=== PATIENT | female | born 1950 | race Caucasian/White ===

== ENCOUNTER → 2023-12-01 10:45 | Outpatient (REF) | payer MEDICARE, OTHER, SELFPAY | LOC: RAD 10:45 | PROVIDERS: ATTENDING PHYSICIAN Internal Medicine | DX: I73.9 Peripheral vascular disease, unspecified (principal) | CPT/HCPCS: 93925 ==

== ENCOUNTER → 2023-12-11 10:58 | Outpatient (REF) | payer MEDICARE, OTHER, SELFPAY | LOC: HWRAD 10:58 | PROVIDERS: ATTENDING PHYSICIAN Nurse Practitioner Family; FAMILY PHYSICIAN Internal Medicine | DX: R22.1 Localized swelling, mass and lump, neck (principal) | CPT/HCPCS: 76536 ==

== ENCOUNTER → 2023-12-18 10:40 | Outpatient (REF) | payer MEDICARE, OTHER, SELFPAY | LOC: RAD 10:40 | PROVIDERS: ATTENDING PHYSICIAN Surgery Vascular Surgery; FAMILY PHYSICIAN Internal Medicine | DX: I73.9 Peripheral vascular disease, unspecified (principal) | CPT/HCPCS: 93922 ==

== ENCOUNTER → 2024-07-19 06:23 | Day surgery (SDC) | payer MEDICARE, OTHER, SELFPAY | LOC: GI 06:23 | PROVIDERS: ATTENDING PHYSICIAN Internal Medicine Gastroenterology; FAMILY PHYSICIAN Internal Medicine | DX: K55.20 Angiodysplasia of colon without hemorrhage (principal); K57.30 Diverticulosis of large intestine without perforation or abscess without bleeding; R19.5 Other fecal abnormalities; K64.0 First degree hemorrhoids | CPT/HCPCS: 45378 ==

== ENCOUNTER 2024-10-22 03:38 | Inpatient (IN) | payer MEDICARE, OTHER, SELFPAY ==
[2024-10-21 16:38] VITALS: BMI 30.1
[2024-10-21 17:03] VITALS: BP 103/67
[2024-10-21 17:41] LABS: ALT (SGPT) 33 U/L (0-35); AST (SGOT) 38 U/L (14-36); Albumin 4.2 g/dl (3.5-5.0); Alkaline Phosphatase 80 U/L (38-126); Blood Urea Nitrogen 24 mg/dl (7-17); Calcium 9.8 mg/dl (8.4-10.2); Carbon Dioxide 23 mmol/L (22-30); Chloride 102 mmol/L (98-107); Glucose 130 mg/dl (70-99); Lipase 168 U/L (23-300); Potassium 3.5 mmol/L (3.5-5.1); Sodium 134 mmol/L (135-145); Total Bilirubin 0.9 mg/dl (0.2-1.3); Total Protein 6.3 g/dl (6.3-8.2); eGFR > 60.00
[2024-10-21 17:47] LABS: Hematocrit 46.1 % (37.0-47.0); Hemoglobin 15.4 g/dL (12.0-16.0); Mean Corp Hgb Conc. 33.4 g/dL (33.0-37.0); Mean Corpuscular Hgb 29.3 pg (27.0-31.0); Mean Corpuscular Volume 87.8 fL (81.0-99.0); Mean Platelet Volume 10.3 fL (7.4-10.4); Platelet Count 289 10^3/uL (130-400); Red Blood Cell Count 5.25 10^6/uL (4.20-5.40); Red Cell Dist. Width 13.2 % (11.5-14.5); White Blood Cell Count 20.2 10^3/uL (4.8-10.8)
[2024-10-21 18:02] LABS: Absolute Neutrophils -Man Diff 18.1 10^3/uL (1.4-6.5); Band Neutrophils 1 % (0-3); Lymphocytes 7 % (20-51); Monocytes 3 % (2-9); Normal RBC Morphology Yes; Platelets Checked Yes; Segmented Neutrophils 89 % (42-75); Total Cells Counted 100
[2024-10-21 21:05] VITALS: BP 107/70
--- NOTE | 2024-10-21 21:37 | ED.GENMED ---
History of Present Illness
General
Chief Complaint: Abdominal Symptoms
Source: patient and family
Time Seen by Provider: 10/21/24 21:20
History of Present Illness
History of Present Illness:
This patient is a 74-year-old female presents emergency department with complaints of a slight headache that she noted last night. She went to bed and slept throughout the night and woke up this morning feeling 'good'. However, shortly after
breakfast she noted pain across her mid to lower abdomen that persists associated with nausea and several episodes of nonbloody vomiting as well as nonbloody diarrhea. She took Pepto and Imodium without relief of symptoms. She describes the pain
as constant but waxes and wanes in intensity and seems to be better when she leans over. She denies fever, chills, chest pain, shortness of breath, back pain, or other complaints. She denies sick contacts.
Past History
Past History
ED Past Medical History: Other (Hypertrophic cardiomyopathy, hypertension, asthma)
ED Past Surgical History: Orthopedic and Other (Panniculectomy, hemorrhoidectomy, rhinoplasty)
Social History
Tobacco: Non-smoker
Alcohol: None
Drug: None
Personal:
Living: with family
Employment: Employed
Family History
Family History: CAD; Negative Early CAD or Sudden
Phy Exam
Physical Exam
Physical Exam:
GENERAL: Alert , in no apparent distress
EYE: pupils equal and reactive
NECK: Supple, no significant adenopathy.
ENT: o/p clr, mm dry
CARDIAC: Regular rate and rhythm, systolic murmur noted.
LUNGS: Clear breath sounds bilaterally, no acute respiratory distress, no wheezes/rales/rhonchi
ABDOMEN: Soft, diffuse mid to lower tenderness, no r/g, no cvat
NEUROLOGICAL: Alert and oriented, no focal neuro deficits
SKIN: Warm and dry, skin intact.
MUSCULOSKELETAL: No edema, well perfused.
PSYCH: Normal and appropriate interaction.
Course
Orders/Labs/Results
Orders:
Orders
10/21/24 17:13
Complete Blood Count/With Diff Urgent
Comprehensive Metabolic Panel Urgent
Lipase Urgent
Manual Differential Urgent
10/21/24 21:37
CT Abd/Pel (IV only)-DH only Urgent
Comment:
Reason For Exam: abd pain (mid), n/v/d, wbc 20K
0.9% Sodium Chloride 1000 ml [Nss] 1,000 ml IV BOLUS
10/21/24 21:38
Ketorolac [Toradol] 15 mg IV NOW STA
10/21/24 22:12
Lorazepam [Ativan] 0.5 mg IV NOW STA
Morphine Sulfate 4 mg IV NOW STA
10/22/24 01:33
0.9% Sodium Chloride 500 ml [Nss] 500 ml IV BOLUS
LevoFLOXacin 500 MG/100 ML [Levaquin] 500 mg in 100 ml IV NOW
MetroNIDAZOLE 500 MG/100 ML [Flagyl 500 mg] 100 ml IV NOW
10/22/24 02:51
Admit/Transfer Patient As Directed
Co-Sign Provider:
Level of Care: Inpatient admission
Assign to:: Telemetry
Physician / Group: Arlene
Diagnosis: Colitis
Reason for Telemetry: Arrhythmia
Date to Stop Telemetry: 10/25/24
Time to Stop Telemetry: 11:00
Reason for Hospitalization: Colitis
Expected length of stay greater than two midnights?: Yes
ELOS- Estimated Length of Stay in days: 3
I certify the patient meets the requirements for IP care: Yes
10/22/24 02:52
Code Status As Directed
Resuscitation Status: Full Code
PRN Pain Medication Management As Directed
May give lesser potent ordered pain med per pt: Yes
preference::
Protocol:: Medication orders for pain may be administered in a
manner that supports deferring to patient preference
when the pt is:
- Requesting an ordered lesser potent pain medication.
Least to most potent pain medications are defined
as: acetaminophen < NSAID < tramadol < opioids
(morphine, oxycodone, hydromorphone).
- Requesting a lesser dose of the same medication IF
ORDERED.
- Requesting a less intrusive route of administration
if both routes are prescribed by the provider (PO <
IV).
10/22/24 03:19
Lactate Level [Lactic Acid] Urgent
10/22/24 03:48
Acetaminophen [Tylenol] 650 mg PO Q4HPRN PRN
HYDROmorphone [Dilaudid] 0.5 mg IV Q4HPRN PRN
Lactated Ringers [Lr] 1,000 ml IV 125 mls/hr
Ondansetron Injectable [Zofran] 4 mg IV Q6HPRN PRN
10/22/24 03:48
Activity As Directed
Activity Level: Ambulate
With Assistance
I/O [Intake/ Output] As Directed
Frequency: Per unit guidelines
Orthostatic Vital Signs As Directed
Orthostatic VS Frequency: BID
Pneumatic Compression Sleeves As Directed
Type: Knee high
Precautions As Directed
Type of Precautions: Contact
Vital Signs As Directed
Frequency: Per unit guidelines
Oxygen Therapy [O2 Therapy] [RESP] Routine
Titrate/Wean O2 to maintain O2 sat greater than (%): 94
DX Deep Vein Thrombosis Video Routine
10/22/24 05:31
Basic Metabolic Panel IN AM
Complete Blood Count/No Diff IN AM
10/22/24 Breakfast
Clear Liquid
At Your Request: Full Participation
Piperacillin/Tazo 3.375 Gram [Zosyn] 3.375 gram in 50 ml IV Q6H
10/25/24 11:00
DC Protocol for Telemetry ONCE
Abnormal Lab Results
10/21/24
17:13
WBC 20.2 H 10^3/uL
(4.8-10.8)
Abs Neuts (Manual) 18.1 H 10^3/uL
(1.4-6.5)
Segmented Neutrophils 89 H %
(42-75)
Lymphocytes (Manual) 7 L %
(20-51)
Sodium 134 L mmol/L
(135-145)
BUN 24 H mg/dl
(7-17)
Glucose 130 H mg/dl
(70-99)
AST 38 H U/L
(14-36)
10/21/24 17:13
10/21/24 17:13
Vital Signs
Initial and Last Documented VS:
Initial Vital Signs
Temp Pulse Resp BP Pulse Ox
97.3 F 111 18 103/67 96
10/21/24 17:03 10/21/24 17:03 10/21/24 17:03 10/21/24 17:03 10/21/24 17:03
Last Documented Vital Signs
Temp Pulse Resp BP Pulse Ox
98.1 F 76 20 150/88 97
10/26/24 11:35 10/26/24 11:35 10/26/24 11:35 10/26/24 11:35 10/26/24 11:35
*Critical Care Note
Total Time (30-74mins, 75-104mins- exclusive of procedures): Not Applicable
Update Note
Update Note:
Patient presents to the Emergency Department with abdominal pain nausea vomiting diarrhea
Number and Complexity of Problems Addressed at the Encounter
� Chronic conditions affecting care:
� Acute Exacerbation and/or Progression of Chronic Illness:
� Differential Diagnosis includes: But not limited to bowel obstruction, gastroenteritis, appendicitis, diverticulitis, etc. etc.
Amount and/or Complexity of Data to be Reviewed and Analyzed
� I performed an independent evaluation of and my interpretation is:
EKG:
CT: Read by vision, wall thickening of the colon most notable in the descending to sigmoid suggesting colitis small free fluid in the pelvis mesenteric vessels are patent etiologies include infectious/inflammatory with watershed
ischemia not excluded of hypovolemic which can be clinically correlated, hiatal hernia present without obstruction or acute finding normal gallbladder
Xrays:
Laboratory Studies: Markedly elevated white blood cell count with left shift, prerenal azotemia
Other:
� Review of other/old records reveals:
� Clinical information was obtained by an independent historian:
� Prescriptions/Medications Considered but not given:
� Further testing considered but not performed:
Risk of Complications and/or Morbidity or Mortality of Patient Management
� Social determinants of health affecting care:
� Discussion with other providers (PCP, Hospitalists, Consultants, etc):
� Escalation of care including admission/observation vs risk of discharge considered: 1013pm Pt has taken morphine in past without s/e. Requesting ativan for CT scan.
132 am Pt feels much better, pain now 3/10. No new sxs. sl hypotension noted, suspect dehdration related, will give more ivf. given labs/ct etc will tx presumptively for infectious colitis with abx. admission, close monitoring. D/w dr Acuna via
text.
ED Attending Note
-
Portions of this chart may have been created with voice recognition software.� Occasional wrong word or��sound alike� substitutions may have occurred due to the inherent limitations of voice recognition software.
Discharge Plan
Departure
Patient Disposition: Admit
Date of Disposition: 10/22/24
Time of Disposition: 01:35
Admit to: Telemetry
Admit to doctor: arlene
Presentation/result/management discussed w/ accepting MD/DO: Hospitalist
Discharge Problem:
Colitis
Interventions
Interventions:
*Risk Screen - Suicide Last Done: 10/22/24 04:03
*General Assessment Last Done: 10/21/24 21:36
ED- Fall Risk Assessment Last Done: 10/21/24 21:37
*ED COVID-19 Vaccine History Last Done: 10/21/24 21:36
*Nursing Disposition Last Done: 10/22/24 07:30
DE-Uhgkuh-Sscijczyng Assessment Last Done: 10/21/24 21:37
Discharge Date and Time
Discharge Date/Time: 10/22/24 07:30
[2024-10-21] MEDS: NSS 1000 IV (21:46)
[2024-10-21] MEDS: TORADOL 15 MG IV (21:46)
[2024-10-21 22:00] VITALS: BP 100/71
[2024-10-21] MEDS: MORPHINE SULFATE 4 MG IV (22:21)
[2024-10-21] MEDS: ATIVAN 0.5 MG IV (22:23)
[2024-10-21 23:00] VITALS: BP 95/57
[2024-10-22] VITALS (38 sets, daily range): BP systolic 81–116; BP diastolic 46–75
[2024-10-22] MEDS: NSS 500 IV ×2 (02:09→06:24)
[2024-10-22] MEDS: FLAGYL 500 MG 100 IV (02:10)
[2024-10-22] MEDS: LEVAQUIN 100 IV (02:10)
--- NOTE | 2024-10-22 02:55 | HPS.HSE ---
Family Physician
-
Family Physician: Malia Mary
Chief Complaint
-
Abd Pain, Diarrhea
History of Present Illness
Patient is a 74y F with PMH significant for HOCM, hypertension and asthma who presents to ED complaining of abdominal pain. Patient states that she was feeling well until this AM just after breakfast (two hard boiled eggs and some toast) when
she developed diffuse abdominal pain. Patient states that her symptoms persisted throughout the day. Pain was worse with any movement. She had 3-4 episodes of non-bloody emesis. She states that she has had non-bloody diarrhea 'all day'. She
reports 10 small episodes since arrival here in the ED. Patient denies any prior history of similar symptoms.
She recently (Thursday) visited her aunt at a facility where they had a recent outbreak of Norovirus.
She has no other specific / known sick contacts.
Medical History
Past Medical History
Past Medical History: Reports Other
Additional Past Medical History:
Hypertrophic Cardiomyopathy
Hypertension
Asthma
Past Surgical History: Reports Other
Additional Past Surgical History:
T&A
Hemorrhoidectomy
Septoplasty
Abdominoplasty
D&C
Laminectomy
Right TKA
Social History
Tobacco: Non-smoker
Alcohol: None
Drug: None
Family History
Family History: Not pertinent
Allergies / Home Medications
Allergies reflects when Allergies were last updated in [facility].
Home Medications with original date entered in [facility]
Allergy/Medication List:
Allergies
Allergy/AdvReac Type Severity Reaction Status Date / Time
oxycodone Allergy Rash Verified 08/21/21 06:36
Home Medications
atorvastatin 10 mg tablet 10 mg PO TUTHSA 05/07/18
Alteril 2 tab PO HS 07/24/21
albuterol sulfate 90 mcg/actuation aerosol inhaler 2 puff inhalation PRN PRN SOB 07/24/21
baclofen 5 mg tablet 5 mg PO Q8H 07/24/21
fluticasone furoate 200 mcg-vilanterol 25 mcg/dose inhalation powder (Breo Ellipta) 1 ea IH Daily 07/24/21
lisinopril 5 mg tablet 5 mg PO DAILY 07/24/21
metoprolol tartrate 50 mg tablet 50 mg PO BID 07/24/21
pregabalin 50 mg capsule 50 mg PO BID 07/24/21
aspirin 81 mg tablet,delayed release (Aspir-Low) 81 mg PO DAILY ##0 08/22/21
diazepam 2 mg tablet 2 mg PO HS #5 tabs 08/22/21
docusate sodium 100 mg capsule 100 mg PO BID 08/22/21
hydrocodone 10 mg-acetaminophen 325 mg tablet 1 ea PO Q6HPRN PRN MODERATE-SEVERE PAIN ##0 08/22/21
lorazepam 0.5 mg tablet 0.5 mg PO BID PRN anxiety ##0 08/22/21
sennosides 8.6 mg tablet (senna) 2 tab PO BID 08/22/21
vitamins A,C,V-vslv-cpcfhs 4,296 mcg-226 mg-90 mg capsule (PreserVision AREDS) 1 cap PO BID ##0 08/22/21
cephalexin 500 mg capsule 500 mg PO Q6H 5 days #20 caps 08/23/21
Review of Systems
-
History Source: Patient
A 12 point ROS was completed and negative except as noted: Yes
Constitutional: Reports Fatigue; Denies Fever or Chills
Respiratory: Denies Cough or Trouble Breathing
Cardiac: Denies Chest Pain or Palpitations
Abdomen/GI: Reports Abdominal Pain, Nausea, Vomiting and Diarrhea; Denies Bloody Stools or Black Stools
: Denies Dysuria or Frequency
Musculoskeletal: Denies Joint Pain or Edema
Neurological: Denies Dizzy or Headache
Psych: Denies Depression or Anxiety
Physical Exam
Vital Signs
Vital Signs
Temp Pulse Resp BP Pulse Ox
97.3 F 103 25 110/68 94
10/21/24 17:03 10/22/24 02:30 10/22/24 02:30 10/22/24 02:00 10/22/24 02:30
Physical Exam
General: Other (74y F in no acute distress.)
HEENT: Other (Dry MM.)
Respiratory: Clear; No Wheezes, Rales or Rhonchi
Cardiac: S1/S2, Regular Rhythm and Murmur (III/ LAST)
GI: Soft, Non Distended, Normal Bowel Sounds and Other (Diffusely tender wth voluntary guarding. No rebound.)
Musculoskeletal: No Clubbing, No Cyanosis and No Edema
Neuro: AO x 3
Laboratory Results
-
10/21/24 17:13
10/21/24 17:13
Laboratory Results
Total Bilirubin 0.9 mg/dl (0.2-1.3) 10/21/24 17:13
AST 38 U/L (14-36) H 10/21/24 17:13
ALT 33 U/L (0-35) 10/21/24 17:13
Alkaline Phosphatase 80 U/L (38-126) 10/21/24 17:13
Lipase 168 U/L (23-300) 10/21/24 17:13
Impression/Plan
-
A/P: Patient is a 74y F with PMH significant for asthma, HTN and HOCM who presents to ED complaining of abdominal pain and N/V/D.
Colitis
Sepsis secondary to the above
- Admit for further evaluation and treatment.
- Patient presents with leukocytosis, tachycardia, tachypnea and symptoms / CT findings c/w colitis.
- Check stool studies for culture, CDiff, etc.
- IV abx with Zosyn for now.
- IVF support.
- Check lactate level and trend if elevated.
- Follow for clinical improvement.
Hypertrophic Cardiomyopathy
- Followed at [facility]. Noted to be 'severe' on recent evaluation.
- ? ischemic colitis on basis of outflow obstruction / poor perfusion.
- Additional symptoms seem to support infectious etiology.
- Check and follow lactate level.
- IVF support / avoid hypotension / hypoperfusion.
Mild Asthma without Exacerbation
- Stable. Nebs PRN.
DVT Prophylaxis: SCDs
Code Status: Full
[2024-10-22 03:42] LABS: Lactic Acid 1.6 mmol/L (0.7-2.0)
[2024-10-22] MEDS: LR 1000 IV ×6 (05:12→19:54)
[2024-10-22 05:50] LABS: Hematocrit 38.3 % (37.0-47.0); Hemoglobin 12.9 g/dL (12.0-16.0); Mean Corp Hgb Conc. 33.7 g/dL (33.0-37.0); Mean Corpuscular Hgb 29.7 pg (27.0-31.0); Mean Platelet Volume 10.3 fL (7.4-10.4); Platelet Count 206 10^3/uL (130-400); Red Blood Cell Count 4.35 10^6/uL (4.20-5.40); Red Cell Dist. Width 13.3 % (11.5-14.5); White Blood Cell Count 17.5 10^3/uL (4.8-10.8)
--- NOTE | 2024-10-22 05:52 | PTCARENOTE ---
Pt with BP systolic in the 80's, asymptomatic without complaints; d/w covering DATA MANAGEMENT CONSULTANT, 500cc bolus ordered.
[2024-10-22 06:06] LABS: Blood Urea Nitrogen 30 mg/dl (7-17); Calcium 8.4 mg/dl (8.4-10.2); Carbon Dioxide 21 mmol/L (22-30); Chloride 104 mmol/L (98-107); Estimated Creatinine Clearance 52 ml/min; Glucose 121 mg/dl (70-99); Potassium 3.8 mmol/L (3.5-5.1); Sodium 132 mmol/L (135-145); eGFR 53.06
[2024-10-22] MEDS: ZOSYN 50 IV ×4 (06:19→23:47)
--- NOTE | 2024-10-22 06:37 | W.PN.UPDATE ---
Update Note
Progress Note Update
Patient hypotensive, 80/40's, HR 110's. Attempted 2x 500 ml fluid bolus and IV fluids at 125. Remained hypotensive. Tranferred to IMU level of care, started Levophed.
--- NOTE | 2024-10-22 06:40 | PTCARENOTE ---
Pt's BP 90/48 with a MAP of 58 after 500cc bolus, remains asymptomatic. INSOLE CHANNELER updated on pt status, orders receive to upgrade pt to IMU level of care. Report called to ANY POLANCO.
--- NOTE | 2024-10-22 08:48 | W.PN.HOSP.TC ---
Today's Communication/Plan
-
see PN
Assessment / Plan
Assessment / Plan
74yo F with PMHX of cholecytectomy, asthma, HLD, HTN, neuropathy, HOCM came with c/o abdominal pain, cramping and waterry nopn-bloody diarrhea for 1 day. Had contact with possible norovirus 5 days prior, CT showed colitis
A/P:
#Colitis with hypotension, concern for septic shock
lactate WNL
check stool studies
Zosyn
IVF
#ZELDA
2/2 dehydration
IVF
# left renal mass measuring 2.9 cm, suspicious for neoplasm
renal MRI as outpatient
folow with urology
#HOCM
#Essential HTN
#Neuropathy
#HLD
hold antihypertensives
#Hepatic lesions
cysts and some too small to characterize - MRI as outpatient
DVT ppx hep
Full code
I have spent at least 59min reviewing chart, test results, communication with consultants and direct patientcare
Anticipated Discharge: > 48 hours
Subjective/Interval History
-
Date of Service: October 22, 2024
Objective Data
-
Labs:
Laboratory Results
10/22/24
05:31
WBC 17.5 H
Hgb 12.9
Hct 38.3
Plt Count 206 D
Sodium 132 L
Potassium 3.8
Chloride 104
Carbon Dioxide 21 L
BUN 30 H
Creatinine 1.1 H
Glucose 121 H
Calcium 8.4
Vital Signs:
Vital Signs
Temp Pulse Resp BP Pulse Ox
97.3 F 107 26 84/50 92
10/21/24 17:03 10/22/24 07:00 10/22/24 07:00 10/22/24 07:00 10/22/24 07:00
Review of Systems
-
History Source: Patient
All other systems: Reviewed and negative
Abdomen/GI: Reports Abdominal Pain and Diarrhea
Physical Exam
-
General: No Apparent Distress
HEENT: Normocephalic
Respiratory: Clear to Auscultation
Cardiac: Regular Rhythm
GI: Soft, Nondistended and Tender
Genito-urinary: No Costovertebral Tender
Musculoskeletal: No Clubbing, No Cyanosis and No Edema
Neuro: Awake, Alert, Oriented and AO x 3
Psych: Calm
--- NOTE | 2024-10-22 10:56 | PTCARENOTE ---
received from ER on a stretcher, handoff tele monitoring completed. patient on enhanced precautions due to diarrhea and stool specimen pending collection. patient is hypotensive, c/o of feeling weak. assisted to the bathroom and back to bed. IVF
bolus admin with positive effect. BP BP 116/53 MAP 72, MD aware. second IV line placed and documented. LR is infusing @125 ml/hr. no levo needed at this time. patient does not express need to have a bowel movement as of right now. tolerating CLD.
family updated over the phone
[2024-10-22 12:23] LABS: COVID-19 Antigen Negative (Negative)
[2024-10-22] MEDS: TYLENOL 650 MG PO (16:11)
--- NOTE | 2024-10-22 16:29 | CM ---
Patient seen at bedside.
IA completed
Lives with in a ranch, 3 steps to enter
PLOF; independent
DME: henry Alvarado
PCP: Malia Mary
Pharmacy: [facility]
PLAN: Home, currently no needs anticipated
[2024-10-22] MEDS: FIRVANQ 125 MG PO ×2 (17:38→23:47)
[2024-10-22] MEDS: HEPARIN 5000 UNITS SC (19:54)
[2024-10-22] MEDS: MELATONIN 5 MG PO (21:22)
[2024-10-23] VITALS (21 sets, daily range): BP systolic 93–146; BP diastolic 54–106; PULSE 90–91; O2SAT 96; BMI 29.7
[2024-10-23 05:11] LABS: ALT (SGPT) 30 U/L (0-35); AST (SGOT) 32 U/L (14-36); Albumin 2.6 g/dl (3.5-5.0); Alkaline Phosphatase 71 U/L (38-126); Blood Urea Nitrogen 30 mg/dl (7-17); Calcium 7.8 mg/dl (8.4-10.2); Carbon Dioxide 17 mmol/L (22-30); Chloride 102 mmol/L (98-107); Estimated Creatinine Clearance 52 ml/min; Glucose 83 mg/dl (70-99); Potassium 3.5 mmol/L (3.5-5.1); Sodium 130 mmol/L (135-145); Total Bilirubin 1.1 mg/dl (0.2-1.3); Total Protein 4.6 g/dl (6.3-8.2); eGFR 53.06
[2024-10-23 05:19] LABS: Hematocrit 33.7 % (37.0-47.0); Hemoglobin 11.1 g/dL (12.0-16.0); Mean Corp Hgb Conc. 32.9 g/dL (33.0-37.0); Mean Corpuscular Hgb 29.2 pg (27.0-31.0); Mean Corpuscular Volume 88.7 fL (81.0-99.0); Mean Platelet Volume 11.1 fL (7.4-10.4); Platelet Count 182 10^3/uL (130-400); Red Cell Dist. Width 13.6 % (11.5-14.5); White Blood Cell Count 16.7 10^3/uL (4.8-10.8)
[2024-10-23] MEDS: FIRVANQ 125 MG PO ×4 (05:38→22:51)
[2024-10-23] MEDS: ZOSYN 50 IV (05:38)
--- NOTE | 2024-10-23 06:17 | PTCARENOTE ---
remains with loose watery diarrhea- bp wnl never required Levophed- afebrile- ambulates w/out difficulty
[2024-10-23 08:52] LABS: Absolute Neutrophils -Man Diff 13.5 10^3/uL (1.4-6.5); Band Neutrophils 14 % (0-3); Segmented Neutrophils 67 % (42-75)
[2024-10-23 08:58] LABS: Normal RBC Morphology Yes; Platelets Checked Yes; Total Cells Counted 100
[2024-10-23 08:59] LABS: Lymphocytes 10 % (20-51); Monocytes 9 % (2-9)
[2024-10-23] MEDS: HEPARIN 5000 UNITS SC ×2 (09:14→19:49)
[2024-10-23] MEDS: LR IV (09:18)
[2024-10-23] MEDS: FLAGYL 500 MG 100 IV ×2 (10:33→18:07)
[2024-10-23 10:51] LABS: Urine Albumin Trace (Neg - Trace); Urine Bilirubin Negative (Negative); Urine Character Clear (Clear); Urine Color Yellow; Urine Glucose Negative (Negative); Urine Ketone Negative (Negative); Urine Leukocyte 1+ (Negative); Urine Nitrite Negative (Negative); Urine Occult Blood 1+ (Negative); Urine Urobilinogen Negative (Neg - 1+)
[2024-10-23 11:30] LABS: Urine Bacteria Few (Negative)
--- NOTE | 2024-10-23 11:42 | W.PN.HOSP.TC ---
Addendum entered and electronically signed by Caio Judd MD 10/23/24 18:42:
third spacing with protein loosing enteropathy and low albumin - imodium started since no wbc in stool, albumin infusion once, check protein in AM
Original Note:
Today's Communication/Plan
-
With bandemia - repeat septic check Bcx, XR, UA
Switch to Ceftriaxone/Flagyl
Assessment / Plan
Assessment / Plan
74yo F with PMHX of cholecystectomy, asthma, HLD, HTN, neuropathy, HOCM came with c/o abdominal pain, cramping and waterry nopn-bloody diarrhea for 1 day. Had contact with possible norovirus 5 days prior, CT showed colitis. C.diff came positive for
clostridium difficile, but neg for toxin, started on empiric treatment due to pronounced symptoms. Since meeting criteria for severe infection with bandemia and hypotension on admission - add Flagyl. Rocephin for possible UTI.
A/P:
#Colitis with hypotension, concern for septic shock
#Cannot r/o UTI
lactate WNL
No WBC in stool,
Ceftriaxone/Flagyl
Clostridium difficile present, but toxin not detected - start oral Vanco since bandemia and prognosed symptomatology
Bcx pending
Ucx pending
#ZELDA
2/2 dehydration
IVF
# left renal mass measuring 2.9 cm, suspicious for neoplasm
renal MRI as outpatient
follow with urology
#HOCM
#Essential HTN
#Neuropathy
#HLD
hold antihypertensives
#Hepatic lesions
cysts and some too small to characterize liver lesions - MRI as outpatient
DVT ppx hep
Full code
I have spent at least 57min reviewing chart, test results, communication with consultants and direct patient care
Anticipated Discharge: > 48 hours
Subjective/Interval History
-
Date of Service: October 23, 2024
Objective Data
-
Labs:
Laboratory Results
10/23/24
04:29
WBC 16.7 H
Hgb 11.1 L
Hct 33.7 L
Plt Count 182
Sodium 130 L
Potassium 3.5
Chloride 102
Carbon Dioxide 17 L
BUN 30 H
Creatinine 1.1 H
Glucose 83
Calcium 7.8 L
Total Bilirubin 1.1
AST 32
ALT 30
Alkaline Phosphatase 71
Vital Signs:
Vital Signs
Temp Pulse Resp BP Pulse Ox
98.3 F 86 16 118/54 94
10/23/24 08:05 10/23/24 06:00 10/23/24 06:00 10/23/24 06:00 10/23/24 06:00
I&O
10/22/24 10/23/24 10/24/24
06:59 06:59 06:59
Intake Total 1490 / 1490
Balance 1490 / 1490
Review of Systems
-
History Source: Patient
All other systems: Reviewed and negative
Abdomen/GI: Reports Diarrhea
Physical Exam
-
General: No Apparent Distress
HEENT: Normocephalic
Respiratory: Clear to Auscultation
Cardiac: Regular Rhythm
GI: Soft, Nondistended and Tender
Musculoskeletal: No Clubbing, No Cyanosis and No Edema
Neuro: Awake, Alert, Oriented and AO x 3
Psych: Calm
[2024-10-23] MEDS: ROCEPHIN 1000 MG IV (12:45)
[2024-10-23] MEDS: STERILE WATER FOR INJECTION 10 ML IV (12:45)
--- NOTE | 2024-10-23 15:06 | PTCARENOTE ---
AAOx3, makes needs known, several BMs recorded during this shift. BP stable. BC and urine collected, pending. Xray completed. patient is on IV ABT, no adverse reactions noted. CLD tolerating, oob to a chair with PT for meals. assisted with care.
family at bedside
--- NOTE | 2024-10-23 18:15 | W.PN.UPDATE ---
Update Note
Progress Note Update
cross coverage update:
Notified by nurse patient complaint acid reflux, unable to recall the name of the medication she takes for this at home. Started Protonix 40 mg BID for now.
[2024-10-23] MEDS: PROTONIX 40 MG PO (18:33)
[2024-10-23] MEDS: ALBUMIN 5% 250 IV ×2 (19:48→21:08)
[2024-10-23] MEDS: MELATONIN 5 MG PO (21:08)
--- NOTE | 2024-10-23 21:43 | PTCARENOTE ---
Received pt at change of shift. Pt able to ambulate to bathroom with no assist. Albumin ordered and administered. BP remains stable at this time. Current reading is 146/77 HR 97. Afebrile. Still having diarrhea but does not want any imodium as
ordered PRN. Pt resting in bed with call carpenter in reach.
[2024-10-24] VITALS (12 sets, daily range): BP systolic 129–166; BP diastolic 70–98; PULSE 88–99; BMI 29.2
[2024-10-24] MEDS: ATIVAN 0.5 MG PO ×2 (00:06→21:10)
[2024-10-24] MEDS: FLAGYL 500 MG 100 IV ×2 (02:29→09:06)
[2024-10-24] MEDS: FIRVANQ 125 MG PO ×3 (05:29→17:13)
[2024-10-24 05:52] LABS: % Basophils 0.3 % (0-2); % Eosinophils 1.8 % (0-6); % Immature Granulocytes 0.6 % (0-0.5); % Lymphocytes 11.4 % (20.5-51.1); % Monocytes 8.9 % (1.7-9.3); Absolute Eosinophils 0.2 10^3/uL (0-0.7); Absolute Immature Granulocytes 0.1 10^3/uL (0-0.05); Absolute Lymphocytes 1.2 10^3/uL (1.2-3.4); Absolute Monocytes 0.9 10^3/uL (0.1-0.6); Hematocrit 31.5 % (37.0-47.0); Hemoglobin 10.7 g/dL (12.0-16.0); Mean Corpuscular Volume 88.2 fL (81.0-99.0); Mean Platelet Volume 10.8 fL (7.4-10.4); Nucleated Red Blood Cells % 0 %; Platelet Count 161 10^3/uL (130-400); Red Blood Cell Count 3.57 10^6/uL (4.20-5.40); Red Cell Dist. Width 13.3 % (11.5-14.5); White Blood Cell Count 10.4 10^3/uL (4.8-10.8)
[2024-10-24 06:25] LABS: ALT (SGPT) 25 U/L (0-35); AST (SGOT) 25 U/L (14-36); Albumin 2.9 g/dl (3.5-5.0); Alkaline Phosphatase 62 U/L (38-126); Blood Urea Nitrogen 13 mg/dl (7-17); Calcium 8.1 mg/dl (8.4-10.2); Carbon Dioxide 20 mmol/L (22-30); Chloride 108 mmol/L (98-107); Estimated Creatinine Clearance 94 ml/min; Glucose 85 mg/dl (70-99); Potassium 3.2 mmol/L (3.5-5.1); Sodium 137 mmol/L (135-145); Total Bilirubin 0.5 mg/dl (0.2-1.3); Total Protein 4.9 g/dl (6.3-8.2); eGFR > 60.00
--- NOTE | 2024-10-24 08:52 | PTCARENOTE ---
Patient removed from enhanced precautions per Jackie the Instructional Media Services Technician. Per Jackie, patient does not carry the infectious c-diff antigen. Care ongoing.
[2024-10-24] MEDS: PROTONIX 40 MG PO (09:06)
[2024-10-24] MEDS: HEPARIN 5000 UNITS SC ×2 (09:06→21:07)
--- NOTE | 2024-10-24 10:37 | PTCARENOTE ---
Spoke to Jackie the [employer] and Dr. Nielson. Patient's c-diff is going to be treated so patient needs to be placed back on enhanced precautions. Patient continues with diarrhea. Care ongoing.
[2024-10-24] MEDS: STERILE WATER FOR INJECTION 10 ML IV (12:14)
[2024-10-24] MEDS: ROCEPHIN 1000 MG IV (12:15)
--- NOTE | 2024-10-24 14:51 | PTCARENOTE ---
Patient is AOx3. Patient on RA. VSS. NSR with first degree on monitor. Patient continues with diarrhea. Patient tolerating full liquid diet. Independent when ambulating. Enhanced precautions. Call carpenter within reach, bed in lowest position, and bed
wheels locked.
[2024-10-24] MEDS: KCL 40 MEQ PO (16:45)
--- NOTE | 2024-10-24 16:51 | W.PN.HOSP.TC ---
Today's Communication/Plan
-
Continue oral vancomycin, no Imodium
Switch PPI to famotidine
Continue ceftriaxone
Follow-up cultures
Advance to full liquid diet
Assessment / Plan
Assessment / Plan
74yo F with PMHX of cholecystectomy, asthma, HLD, HTN, neuropathy, HOCM came with c/o abdominal pain, cramping and waterry nopn-bloody diarrhea for 1 day. Had contact with possible norovirus 5 days prior, CT showed colitis. C.diff came positive for
clostridium difficile, but neg for toxin, started on empiric treatment due to pronounced symptoms. Since meeting criteria for severe infection with bandemia and hypotension on admission - add Flagyl. Rocephin for possible UTI.
A/P:
#Colitis with hypotension
#Sepsis
#C Diff
-Ceftriaxone can be continued
-Stool cultures neg
-Will treat with Oral Vanc for CDiff- NO imodium in this case
-Adv to FLD
-F/u cultures
-Ucx neg
�Switch to famotidine, DC PPI in setting of C. difficile treatment
#ZELDA
#Anion gap metabolic acidosis�secondary ZELDA
2/2 dehydration
IVF
-Improving/resolved
#Hypokalemia
� Monitor and replete
- Follow-up magnesium levels
#Hyponatremia
- Suspect secondary to volume depletion
� Resolved with resuscitation
� Continue to monitor
# left renal mass measuring 2.9 cm, suspicious for neoplasm
renal MRI as outpatient
follow with urology
#HOCM
#Essential HTN
#Neuropathy
#HLD
hold antihypertensives
#Hepatic lesions
cysts and some too small to characterize liver lesions - MRI as outpatient
DVT ppx hep
Full code
I have spent at least 53 min reviewing chart, test results, communication with consultants and direct patient care
Anticipated Discharge: 24 - 48 hours
Subjective/Interval History
-
Date of Service: October 24, 2024
Still with loose stools
Objective Data
-
Labs:
Laboratory Results
10/24/24
05:27
WBC 10.4
Hgb 10.7 L
Hct 31.5 L
Plt Count 161
Sodium 137
Potassium 3.2 L
Chloride 108 H
Carbon Dioxide 20 L
BUN 13
Creatinine 0.6
Glucose 85
Calcium 8.1 L
Total Bilirubin 0.5
AST 25
ALT 25
Alkaline Phosphatase 62
Vital Signs:
Vital Signs
Temp Pulse Resp BP Pulse Ox
98.8 F 85 19 159/94 98
10/24/24 15:05 10/24/24 12:24 10/24/24 12:24 10/24/24 12:24 10/24/24 12:00
I&O
10/23/24 10/24/24 10/25/24
06:59 06:59 06:59
Intake Total 1490 / 1490 480 / 480
Balance 1490 / 1490 480 / 480
Review of Systems
-
History Source: Patient
All other systems: Not reviewed unless documented
Physical Exam
-
General: No Apparent Distress
HEENT: Normocephalic
Respiratory: Clear to Auscultation
Cardiac: Regular Rhythm
GI: Soft, Nondistended and Tender
Musculoskeletal: No Clubbing, No Cyanosis and No Edema
Neuro: Awake, Alert, Oriented and AO x 3
Psych: Calm
Data Reviewed
-
Diagnostic Radiology: Report Reviewed by me
CT Scan: Report Reviewed by me
Labs: Labs Reviewed by me
--- NOTE | 2024-10-24 17:02 | PTCARENOTE ---
Patient transferred via stretcher to . Verbal report given to Mayra AGARWAL. Patient belongings sent with patient.
[2024-10-24 17:45] LABS: Magnesium 2.1 mg/dl (1.6-2.3)
--- NOTE | 2024-10-24 17:59 | PTCARENOTE ---
Received patient as a transfer from IMU. Pt AOx3, VSS, no c/o pain. Pt oriented to room, plan of care explained, meds given. Call carpenter within reach.
[2024-10-24] MEDS: MELATONIN 5 MG PO (21:07)
[2024-10-24] MEDS: PEPCID 40 MG PO (21:07)
[2024-10-25] MEDS: FIRVANQ 125 MG PO ×5 (00:54→23:31)
[2024-10-25 03:55] VITALS: BP 152/86
[2024-10-25] MEDS: HEPARIN 5000 UNITS SC (08:05)
[2024-10-25 08:29] VITALS: BP 175/101
[2024-10-25 10:42] LABS: Hematocrit 35.3 % (37.0-47.0); Hemoglobin 11.7 g/dL (12.0-16.0); Mean Corp Hgb Conc. 33.1 g/dL (33.0-37.0); Mean Corpuscular Hgb 28.8 pg (27.0-31.0); Mean Corpuscular Volume 86.9 fL (81.0-99.0); Mean Platelet Volume 10.6 fL (7.4-10.4); Platelet Count 217 10^3/uL (130-400); Red Blood Cell Count 4.06 10^6/uL (4.20-5.40); Red Cell Dist. Width 13.2 % (11.5-14.5); White Blood Cell Count 6.6 10^3/uL (4.8-10.8)
[2024-10-25 10:58] LABS: ALT (SGPT) 25 U/L (0-35); AST (SGOT) 27 U/L (14-36); Albumin 3.4 g/dl (3.5-5.0); Alkaline Phosphatase 68 U/L (38-126); Blood Urea Nitrogen 5 mg/dl (7-17); Calcium 8.4 mg/dl (8.4-10.2); Carbon Dioxide 24 mmol/L (22-30); Chloride 105 mmol/L (98-107); Estimated Creatinine Clearance 93 ml/min; Glucose 93 mg/dl (70-99); Magnesium 1.9 mg/dl (1.6-2.3); Potassium 3.5 mmol/L (3.5-5.1); Sodium 137 mmol/L (135-145); Total Bilirubin 0.5 mg/dl (0.2-1.3); Total Protein 5.5 g/dl (6.3-8.2); eGFR > 60.00
[2024-10-25] MEDS: CALAN EXTENDED RELEASE 120 MG PO (11:15)
[2024-10-25] MEDS: TYLENOL 650 MG PO (11:16)
[2024-10-25] MEDS: STERILE WATER FOR INJECTION 10 ML IV (11:17)
[2024-10-25] MEDS: ROCEPHIN 1000 MG IV (11:17)
[2024-10-25] MEDS: ZOFRAN 4 MG IV ×2 (11:18→22:28)
--- NOTE | 2024-10-25 13:19 | CM ---
Chart reviewed and director case met with patient this am and and patient is anxious to return to home.
Plan; Home when stable, no needs.
--- NOTE | 2024-10-25 14:11 | W.PN.HOSP.TC ---
Today's Communication/Plan
-
Continue full liquid diet
Antiemetics
Continue antibiotics
Assessment / Plan
Assessment / Plan
74yo F with PMHX of cholecystectomy, asthma, HLD, HTN, neuropathy, HOCM came with c/o abdominal pain, cramping and waterry nopn-bloody diarrhea for 1 day. Had contact with possible norovirus 5 days prior, CT showed colitis. C.diff came positive for
clostridium difficile, but neg for toxin, started on empiric treatment due to pronounced symptoms. Since meeting criteria for severe infection with bandemia and hypotension on admission - add Flagyl. Rocephin for possible UTI.
A/P:
#Colitis with hypotension
#Sepsis
#C Diff
-Ceftriaxone can be continued
-Stool cultures neg
-Will treat with Oral Vanc for CDiff- NO imodium in this case
-Adv to FLD�continue as patient nauseous this morning
-F/u cultures�no growth today
-Ucx neg
�Switch to famotidine, DC PPI in setting of C. difficile treatment
#ZELDA
#Anion gap metabolic acidosis�secondary ZELDA
2/2 dehydration
IVF
-Improving/resolved
#Hypokalemia
� Monitor and replete
- Follow-up magnesium levels
#Hyponatremia
- Suspect secondary to volume depletion
� Resolved with resuscitation
� Continue to monitor
# left renal mass measuring 2.9 cm, suspicious for neoplasm
renal MRI as outpatient
follow with urology
#HOCM
#Essential HTN
#Neuropathy
#HLD
Resume metoprolol succinate, verapamil
Hold lisinopril
#Hepatic lesions
cysts and some too small to characterize liver lesions - MRI as outpatient
DVT ppx hep
Full code
Anticipated Discharge: 24 - 48 hours
Subjective/Interval History
-
Date of Service: October 25, 2024
Nauseous today, could not eat breakfast
Objective Data
-
Labs:
Laboratory Results
10/25/24
09:57
WBC 6.6
Hgb 11.7 L
Hct 35.3 L
Plt Count 217 D
Sodium 137
Potassium 3.5
Chloride 105
Carbon Dioxide 24
BUN 5 L
Creatinine 0.6
Glucose 93
Calcium 8.4
Total Bilirubin 0.5
AST 27
ALT 25
Alkaline Phosphatase 68
Vital Signs:
Vital Signs
Temp Pulse Resp BP Pulse Ox
98.3 F 85 16 165/95 95
10/25/24 08:29 10/25/24 11:15 10/25/24 08:29 10/25/24 11:15 10/25/24 08:29
I&O
10/24/24 10/25/24 10/26/24
06:59 06:59 06:59
Intake Total 1919
Balance 1919
Review of Systems
-
History Source: Patient
All other systems: Not reviewed unless documented
Physical Exam
-
General: No Apparent Distress
HEENT: Normocephalic
Respiratory: Clear to Auscultation
Cardiac: Regular Rhythm
GI: Soft, Nondistended and Tender
Musculoskeletal: No Clubbing, No Cyanosis and No Edema
Neuro: Awake, Alert, Oriented and AO x 3
Psych: Calm
Data Reviewed
-
Diagnostic Radiology: Report Reviewed by me
CT Scan: Report Reviewed by me
Labs: Labs Reviewed by me
[2024-10-25 15:00] VITALS: BP 143/64
[2024-10-25 19:30] VITALS: BP 169/98
[2024-10-25 20:55] VITALS: BP 169/98
[2024-10-25] MEDS: TOPROL XL 25 MG PO (21:12)
[2024-10-25] MEDS: MELATONIN 5 MG PO (21:12)
[2024-10-25] MEDS: PEPCID 40 MG PO (21:12)
[2024-10-25] MEDS: HEPARIN SC (21:13)
[2024-10-25] MEDS: ATIVAN 0.5 MG PO (22:28)
[2024-10-25 23:27] VITALS: BP 140/90
[2024-10-26 03:35] VITALS: BP 153/104
[2024-10-26] MEDS: FIRVANQ 125 MG PO ×2 (05:18→11:27)
[2024-10-26 06:04] LABS: Hematocrit 32.5 % (37.0-47.0); Hemoglobin 11.1 g/dL (12.0-16.0); Mean Corp Hgb Conc. 34.2 g/dL (33.0-37.0); Mean Corpuscular Hgb 29.7 pg (27.0-31.0); Mean Corpuscular Volume 86.9 fL (81.0-99.0); Mean Platelet Volume 10.5 fL (7.4-10.4); Platelet Count 208 10^3/uL (130-400); Red Blood Cell Count 3.74 10^6/uL (4.20-5.40); Red Cell Dist. Width 13.1 % (11.5-14.5); White Blood Cell Count 6.8 10^3/uL (4.8-10.8)
[2024-10-26 06:24] LABS: ALT (SGPT) 28 U/L (0-35); AST (SGOT) 34 U/L (14-36); Alkaline Phosphatase 79 U/L (38-126); Blood Urea Nitrogen 3 mg/dl (7-17); Calcium 8.3 mg/dl (8.4-10.2); Carbon Dioxide 29 mmol/L (22-30); Chloride 104 mmol/L (98-107); Estimated Creatinine Clearance 93 ml/min; Glucose 91 mg/dl (70-99); Sodium 138 mmol/L (135-145); Total Bilirubin 0.3 mg/dl (0.2-1.3); Total Protein 4.9 g/dl (6.3-8.2); eGFR > 60.00
[2024-10-26] MEDS: HEPARIN SC (07:45)
[2024-10-26] MEDS: CALAN EXTENDED RELEASE 120 MG PO (07:45)
--- NOTE | 2024-10-26 09:05 | PTCARENOTE ---
RN took sherly blood pressure.
[2024-10-26] MEDS: KCL ELIXIR 40 MEQ PO ×2 (11:27→12:32)
[2024-10-26] MEDS: ROCEPHIN 1000 MG IV (11:28)
[2024-10-26] MEDS: STERILE WATER FOR INJECTION 10 ML IV (11:28)
[2024-10-26] MEDS: ZOFRAN 4 MG IV (11:29)
[2024-10-26 11:35] VITALS: BP 150/88; BP 155/103
--- NOTE | 2024-10-26 12:37 | W.PN.HOSP.TC ---
Addendum entered and electronically signed by Ellis Nielson MD 11/07/24 16:22:
Sepsis without shock, although hypotension present -
Addendum entered and electronically signed by Ellis Nielson MD 10/26/24 17:14:
[id number]
Original Note:
Today's Communication/Plan
-
complete abx course including cefdinir and flagyl
f/u MRI outpatient
bmp f/u
pcp, gi outpt f/u
Assessment / Plan
Assessment / Plan
74yo F with PMHX of cholecystectomy, asthma, HLD, HTN, neuropathy, HOCM came with c/o abdominal pain, cramping and waterry nopn-bloody diarrhea for 1 day. Had contact with possible norovirus 5 days prior, CT showed colitis. C.diff came positive for
clostridium difficile, but neg for toxin, started on empiric treatment due to pronounced symptoms. Since meeting criteria for severe infection with bandemia and hypotension on admission - add Flagyl. Rocephin for possible UTI.
A/P:
#Colitis with hypotension
#Sepsis
#C Diff
-Ceftriaxone - switch to cefdinir to complete 10 days
-Stool cultures neg
-Will treat with Oral Vanc for CDiff- NO imodium in this case - treat for 10 days
-Adv to LRD - tolerating - continue for 2 weeks
-F/u cultures�no growth today
-Ucx neg
�Switch to famotidine, DC PPI in setting of C. difficile treatment
#ZELDA
#Anion gap metabolic acidosis�secondary ZELDA
2/2 dehydration
IVF
-Improving/resolved
-f/u bmp outpt
#Hypokalemia
� Monitor and replete
- Follow-up magnesium levels
-f/u outpt
#Hyponatremia
- Suspect secondary to volume depletion
� Resolved with resuscitation
� Continue to monitor
-f/u bmp outpt
# left renal mass measuring 2.9 cm, suspicious for neoplasm
renal MRI as outpatient
#HOCM
#Essential HTN
#Neuropathy
#HLD
Resume metoprolol succinate, verapamil, lisinopril
#Hepatic lesions
cysts and some too small to characterize liver lesions - MRI as outpatient
DVT ppx hep
Full code
More than 30 minutes spent in discharge including
Final examination of the patient
Summarizing hospital stay
Instructions for continuing care to all relevant caregivers
Preparation of discharge records, prescriptions, and referral forms
Total time spent (36 in minutes):
Anticipated Discharge: Today
Subjective/Interval History
-
Date of Service: October 26, 2024
feels better, tolerating low residue diet
Objective Data
-
Labs:
Laboratory Results
10/26/24
05:02
WBC 6.8
Hgb 11.1 L
Hct 32.5 L
Plt Count 208
Sodium 138
Potassium 3.0 L
Chloride 104
Carbon Dioxide 29
BUN 3 L
Creatinine 0.6
Glucose 91
Calcium 8.3 L
Total Bilirubin 0.3
AST 34
ALT 28
Alkaline Phosphatase 79
Vital Signs:
Vital Signs
Temp Pulse Resp BP Pulse Ox
98.1 F 91 20 155/103 94
10/26/24 11:35 10/26/24 11:35 10/26/24 11:35 10/26/24 11:35 10/26/24 11:35
I&O
10/25/24 10/26/24 10/27/24
06:59 06:59 06:59
Intake Total 1919 1800 / 1799
Balance 1919 1800 1799
Review of Systems
-
History Source: Patient
All other systems: Not reviewed unless documented
Physical Exam
-
General: No Apparent Distress
HEENT: Normocephalic
Respiratory: Clear to Auscultation
Cardiac: Regular Rhythm
GI: Soft, Nondistended and Tender
Musculoskeletal: No Clubbing, No Cyanosis and No Edema
Neuro: Awake, Alert, Oriented and AO x 3
Psych: Calm
Data Reviewed
-
Diagnostic Radiology: Report Reviewed by me
CT Scan: Report Reviewed by me
Labs: Labs Reviewed by me
[2024-10-26 12:45] VITALS: BP 150/88
--- NOTE | 2024-10-26 12:45 | W.DS.TRANS ---
DC Summary - [employer]
-
Discharge Instructions:
Discharge Diagnosis/Procedures Colitis
C. difficile
Diet Low Residue
Blood Work BMP in 3 to 5 days
Others Tests Upper pole left renal mass measuring 2.9 cm.
Possible neoplasm. Recommend further evaluation
with dedicated renal mass protocol MRI abdomen
without and with gadolinium contrast as soon as
possible - f/u with PCP; Further has hepatic
lesions - can f/u with MRI outpatient;
F/u Abdominal US outpatient
Instructions:
Stand-Alone Forms:
Changes to Home Medications: Yes
Discharge Medications:
DC Medications w/original date entered in [employer]
atorvastatin 10 mg tablet 10 mg PO MOWEFR@0800 High Cholesterol 05/07/18
aspirin 81 mg tablet,delayed release 81 mg PO MOTH@0800 Blood Clot Prevention/Tx 10/23/24
vitamins A,C,D-xege-wlibij 4,296 mcg-226 mg-90 mg capsule (PreserVision AREDS) 1 cap PO BID Supplement 10/23/24
Chondroitin/Vitamin D 1 tab PO DAILY Supplement 10/24/24
acetaminophen 500 mg tablet 1,000 mg PO Q6H PRN headache 10/24/24
albuterol sulfate 90 mcg/actuation aerosol inhaler 2 puff inhalation Q6H PRN sob 10/24/24
buspirone 5 mg tablet 5 mg PO BID Mental Health/Anxiety 10/24/24
famotidine 40 mg tablet 40 mg PO HS Gastrointestinal Issue 10/24/24
fluticasone furoate 200 mcg-vilanterol 25 mcg/dose inhalation powder (Breo Ellipta) 1 inh inhalation DAILY Lung/Breathing Issues 10/24/24
inulin 2 gram chewable tablet (Fiber Gummies) 4 g PO HS Constipation 10/24/24
lisinopril 10 mg tablet 10 mg PO HS Blood Pressure 10/24/24
lorazepam 0.5 mg tablet 0.5 mg PO HS PRN sleep/claustrophobia 10/24/24
metoprolol succinate 25 mg tablet,extended release 24 hr 25 mg PO HS Blood Pressure 10/24/24
semaglutide 2 mg/dose (8 mg/3 mL) subcutaneous pen injector (Ozempic) 2 mg SC QWEEK weight loss 10/24/24
verapamil 120 mg tablet,extended release 120 mg PO DAILY Blood Pressure 10/24/24
cefdinir 300 mg capsule 300 mg PO Q12H 6 days #12 caps 10/26/24
vancomycin 50 mg/mL oral solution 125 mg (2.5 mL) PO Q6 6 days #60 mL 10/26/24
Home Medication Changes
cefdinir 300 mg capsule 300 mg PO Q12H 6 days #12 caps 10/26/24
vancomycin 50 mg/mL oral solution 125 mg (2.5 mL) PO Q6 6 days #60 mL 10/26/24
Pending Results: No
--- NOTE | 2024-10-28 14:30 | PN.CDI ---
CDI
- -
CDI:
Physician Documentation Request
Admit Date: 10/22/24 03:38
Dear Doctor Nisreen
Please review the following and provide your response in the progress notes.
Clinical Indicators;
The diagnosis of Septic shock was documented on PN 10/22, but is not consistently noted in subsequent documentation.
Other: Update notes 10/22-
Patient hypotensive, 80/40's, HR 110's. Attempted 2x 500 ml fluid bolus and IV fluids at 125. Remained hypotensive. Tranferred to IMU level of care, started Levophed.
Please clarify the following:
Septic shock was ruled out
Septic shock is still a likely, suspected, probable diagnosis
Other
Unable to determine
Use of terms such as suspected, likely, concern for, or probable (associated with a specific diagnosis that is being evaluated, monitored, or treated as if it exists) are acceptable and can be coded in the inpatient setting, when documented at the
time of discharge.
Thank you,
Tamia Gutierrez
Coding Consult Inpatient
Please use your independent medical judgment in providing your response.
== END 2024-10-26 16:15 | disposition home or self-care (01) | DRG 872 ==
LOC: 4 WEST ACU 03:38
PROVIDERS: Emergency Medicine; Internal Medicine; ADMITTING PHYSICIAN Hospitalist; ATTENDING PHYSICIAN Internal Medicine; EMERGENCY PHYSICIAN Emergency Medicine; FAMILY PHYSICIAN Internal Medicine
DX: A41.9 Sepsis, unspecified organism (principal); N17.9 Acute kidney failure, unspecified; E87.20 Acidosis, unspecified; E87.1 Hypo-osmolality and hyponatremia; I42.1 Obstructive hypertrophic cardiomyopathy; K51.50 Left sided colitis without complications; I10 Essential (primary) hypertension; I25.10 Atherosclerotic heart disease of native coronary artery without angina pectoris; E86.0 Dehydration; J45.909 Unspecified asthma, uncomplicated; I95.9 Hypotension, unspecified; G62.9 Polyneuropathy, unspecified; D41.02 Neoplasm of uncertain behavior of left kidney; K76.9 Liver disease, unspecified; E87.6 Hypokalemia; Z11.52 Encounter for screening for COVID-19; Z96.651 Presence of right artificial knee joint; Z88.5 Allergy status to narcotic agent; Z79.899 Other long term (current) drug therapy; Z79.82 Long term (current) use of aspirin
CPT/HCPCS: 71046; 74177; 80048; 80053; 81003; 81015; 83605; 83690; 83735; 85025; 85027; 87040; 87045; 87046; 87086; 87324; 87427; 87449; 87502; 87798; 87811; 89055; 96361; 96365; 96367; 96375; 97116; 97162; 97166; 99285; P9045; Q9967

== ENCOUNTER → 2024-11-02 14:49 | Outpatient (REF) | payer MEDICARE, OTHER, SELFPAY ==
[2024-11-02 16:00] LABS: Blood Urea Nitrogen 19 mg/dl (7-17); Calcium 8.9 mg/dl (8.4-10.2); Carbon Dioxide 28 mmol/L (22-30); Chloride 102 mmol/L (98-107); Glucose 86 mg/dl (70-99); Potassium 4.1 mmol/L (3.5-5.1); Sodium 139 mmol/L (135-145); eGFR > 60.00
== END ==
LOC: REG 14:49
PROVIDERS: ATTENDING PHYSICIAN Internal Medicine
DX: E87.1 Hypo-osmolality and hyponatremia (principal)
CPT/HCPCS: 36415; 80048

== ENCOUNTER → 2024-11-25 19:26 | Outpatient (REF) | payer MEDICARE, OTHER, SELFPAY | LOC: MRI 19:26 | PROVIDERS: ATTENDING PHYSICIAN Internal Medicine | DX: N28.89 Other specified disorders of kidney and ureter (principal) | CPT/HCPCS: 74183; A9575 ==

== ENCOUNTER → 2025-04-07 13:32 | Outpatient (REF) | payer MEDICARE, OTHER, SELFPAY | LOC: RAD 13:32 | PROVIDERS: ATTENDING PHYSICIAN Surgery Vascular Surgery; FAMILY PHYSICIAN Internal Medicine | DX: I73.9 Peripheral vascular disease, unspecified (principal) | CPT/HCPCS: 93922; 93925 ==

== ENCOUNTER → 2025-06-08 09:55 | Outpatient (REF) | payer MEDICARE, OTHER, SELFPAY ==
[2025-06-08 11:58] LABS: Blood Urea Nitrogen 22 mg/dl (7-17); Calcium 9.4 mg/dl (8.4-10.2); Carbon Dioxide 26 mmol/L (22-30); Chloride 107 mmol/L (98-107); Glucose 80 mg/dl (70-99); Potassium 4.1 mmol/L (3.5-5.1); Sodium 140 mmol/L (135-145); eGFR > 60.00
== END ==
LOC: HWLAB 09:55
PROVIDERS: ATTENDING PHYSICIAN Physician Assistant; FAMILY PHYSICIAN Internal Medicine
DX: D30.02 Benign neoplasm of left kidney (principal)
CPT/HCPCS: 36415; 80048

== ENCOUNTER → 2025-07-31 12:46 | Outpatient (REF) | payer MEDICARE, OTHER, SELFPAY | LOC: HWWDC 12:46 | PROVIDERS: ATTENDING PHYSICIAN Obstetrics & Gynecology Gynecology; FAMILY PHYSICIAN Internal Medicine | DX: Z12.31 Encounter for screening mammogram for malignant neoplasm of breast (principal) | CPT/HCPCS: 77063; 77067 ==

== ENCOUNTER → 2025-08-29 10:18 | Outpatient (REF) | payer MEDICARE, OTHER, SELFPAY ==
[2025-08-29 13:12] LABS: Blood Urea Nitrogen 21 mg/dl (7-17); Calcium 9.2 mg/dl (8.4-10.2); Carbon Dioxide 29 mmol/L (22-30); Chloride 104 mmol/L (98-107); Glucose 84 mg/dl (70-99); Potassium 3.8 mmol/L (3.5-5.1); Sodium 135 mmol/L (135-145); eGFR > 60.00
== END ==
LOC: HWLAB 10:18
PROVIDERS: ATTENDING PHYSICIAN Nurse Practitioner Acute Care; FAMILY PHYSICIAN Internal Medicine
DX: I10 Essential (primary) hypertension (principal)
CPT/HCPCS: 36415; 80048

== ENCOUNTER → 2025-10-09 12:28 | Outpatient (REF) | payer MEDICARE, OTHER, SELFPAY | LOC: RAD 12:28 | PROVIDERS: ATTENDING PHYSICIAN Physician Assistant; FAMILY PHYSICIAN Internal Medicine | DX: D30.02 Benign neoplasm of left kidney (principal) | CPT/HCPCS: 74170; Q9967 ==